=== PATIENT | male | born 1955 | race American Indian/Alaskan Native ===

== ENCOUNTER 2018-11-25 08:07 | Day surgery (SDC) | payer BC ==
[2018-11-25] MEDS ORDERED: ECOTRIN PO ONE (08:41)
[2018-11-25] MEDS ORDERED: NACL 0.9% 500 ML 500 ML IV SCH (09:00)
[2018-11-25 09:02] LABS: Basophils % (Auto) 0.9 % (0.0-1.8); Eosinophils # (Auto) 0.1 K/mm3 (0.0-0.4); Eosinophils % (Auto) 1.9 % (0.0-4.3); Hematocrit 40.9 % (35.5-45.6); Hemoglobin 13.7 gm/dl (11.8-15.2); Lymphocytes # (Auto) 1.2 K/mm3 (1.2-5.4); Lymphocytes % (Auto) 37.3 % (13.4-35.0); Mean Corpuscular HGB Conc 34 % (32-34); Mean Corpuscular Volume 91 fl (84-94); Monocytes # (Auto) 0.5 K/mm3 (0.0-0.8); Monocytes % (Auto) 15.6 % (0.0-7.3); Platelet Count 153 K/mm3 (140-440); Red Blood Count 4.52 M/mm3 (3.65-5.03); Red Cell Distribution Width 15.3 % (13.2-15.2)
[2018-11-25 09:13] LABS: INR 0.89 (0.87-1.13)
[2018-11-25 09:20] LABS: BUN/Creatinine Ratio 15; Blood Urea Nitrogen 15 mg/dL (9-20); Hemolysis Index 14
[2018-11-25] MEDS ORDERED: HEPARIN/NS 5000 UNIT/500ML(CATH LAB) 1,000 ML IR ONE (09:23)
[2018-11-25] MEDS ORDERED: CALAN ONE (09:23)
[2018-11-25] MEDS ORDERED: SUBLIMAZE ONE (09:23)
[2018-11-25] MEDS ORDERED: HEPARIN 10,000 UNITS/10 ML ONE (09:23)
[2018-11-25] MEDS ORDERED: XYLOCAINE 2% INFILTRATI ONE (09:23)
[2018-11-25] MEDS ORDERED: NITROGLYCERIN SYRINGE 3 ML ONE (09:23)
[2018-11-25] MEDS: VERSED ONE ×2 (09:58→10:00)
--- NOTE | 2018-11-25 11:06 | Discharge Summary ---
Short Stay Discharge Plan Activity: advance as tolerated Weight Bearing Status: Partial Weight Bearing Diet: low fat, low cholesterol, low salt Wound: keep clean and dry Special Instructions: no heavy lifting (3 days) Follow up with: HERBERTH LOTT MD [Other] - 7 Days MARITZA NICHOLS MD [Staff Physician] - 7 Days
[2018-11-25] MEDS ORDERED: NACL 0.9% 1000 ML 1,000 ML IV SCH (12:00)
--- NOTE | 2018-11-25 12:50 | Cardiac Catherization Report ---
CARDIAC CATHETERIZATION REASON FOR PROCEDURE: History of coronary artery disease, previous circumflex artery stent, abnormal stress test. PROCEDURES: 1. Left heart catheterization. 2. Selective left and right coronary angiography. 3. Left ventricular angiography. 4. Sedation time, start 09:55 and end 10:24. PROCEDURE: The patient was prepped and draped in a sterile fashion after informed consent. The right radial cath site was prepped and draped after a negative Rafita's test. The right radial artery was entered using Seldinger technique followed by placement of a 6-Citizen [place] hydrophilic sheath. Routine radial cocktail was administered via the sheath. Left coronary angiography was performed using a multipurpose catheter. The multipurpose was also used for left ventricle angiography. We then exchanged for #4 right Esperanza catheter, which was used for right coronary angiography. The catheters were removed, sheath removed, and hemostasis achieved using a TR band. The patient was returned to the postprocedure unit in stable condition. There were no complications. FINDINGS: HEMODYNAMICS: Left ventricle end diastolic pressure was 23, following coronary angiography. Ascending aortic pressure was 118/64. There was no significant pressure gradient on pullback across the aortic valve. CORONARY ANGIOGRAPHY: There was diffuse, moderate ectasia involving both left and right coronary arteries. CORONARY ANGIOGRAPHY: Left main coronary artery was free of significant disease. The left anterior descending artery and its branches contained diffuse moderate ectasia, associated with mild luminal irregularities. No significant obstructive lesions noted. The circumflex artery was also moderately diffusely ectatic throughout its length. In the distal segment of the mid obtuse marginal, there was a previous stent that was widely patent. There was mild atherosclerotic disease adjacent to the proximal stent border, with only a 20-30% luminal narrowing. Otherwise, mild luminal irregularities were noted in the rest of the circumflex system associated with diffuse ectasia. The right coronary artery was dominant and as noted, also diffusely ectatic. This vessel was also notable for mild luminal irregularities, no significant obstructive lesions. Right coronary artery was dominant. There was normal left ventricular systolic function, ejection fraction 60-65%. No significant regional wall motion abnormalities noted in the WILLIAM projection. CONCLUSION: 1. Widely patent prior distal circumflex artery stent. 2. Otherwise, mild nonobstructive irregularities in a diffusely ectatic coronary system. 3. Normal left ventricular systolic function, ejection fraction 60-65%. RECOMMENDATION: Risk factor modification and medical therapy. JOB# [id number] CARLOS/LEANNE
[2018-11-25 13:41] VITALS: BP 126/84
== END 2018-11-25 14:15 | disposition home or self-care (01) ==
LOC: CATHLABREC 08:07
PROVIDERS: ATTEND Internal Medicine Cardiovascular Disease
DX: I25.41 Coronary artery aneurysm (principal); I25.10 Atherosclerotic heart disease of native coronary artery without angina pectoris; M19.90 Unspecified osteoarthritis, unspecified site; E03.9 Hypothyroidism, unspecified; E78.00 Pure hypercholesterolemia, unspecified; Z79.899 Other long term (current) drug therapy; Z79.82 Long term (current) use of aspirin; Z98.890 Other specified postprocedural states; Z98.49 Cataract extraction status, unspecified eye; Z95.1 Presence of aortocoronary bypass graft; Z86.718 Personal history of other venous thrombosis and embolism; Z85.46 Personal history of malignant neoplasm of prostate; Z85.89 Personal history of malignant neoplasm of other organs and systems; Z79.01 Long term (current) use of anticoagulants
CPT/HCPCS: 36415; 80048; 85025; 85610; 85730; 93005; 93010; 93458; 99156; 99157; C1894; J1644; J2250; J3010; J7040; Q9967